=== PATIENT | female | born 1975 | race Caucasian/White ===

== ENCOUNTER 2019-04-17 10:07 | Emergency (ER) | payer SELFPAY ==
[~2019-04-17] VITALS: Ht 162.6 cm; Wt 80.0 kg
[2019-04-17 11:49] VITALS: BP 112/77
== END 2019-04-17 11:53 | disposition home or self-care (01) ==
LOC: ER 10:07
DX: T40.0X1A Poisoning by opium, accidental (unintentional), initial encounter (principal); Y92.89 Other specified places as the place of occurrence of the external cause; G89.4 Chronic pain syndrome; I10 Essential (primary) hypertension; Z88.1 Allergy status to other antibiotic agents
CPT/HCPCS: 99283